=== PATIENT | male | born 1995 | race Caucasian/White ===

== ENCOUNTER 2020-10-05 09:26 | Outpatient (CLI) | payer BC ==
[2020-10-05 11:37] LABS: Hemoglobin 14.8 g/dL (13.5-17.5); Mean Corpuscular HGB CONC 33.5 g/dL (32.0-36.0); Mean Corpuscular Hemoglobin 29.5 pg (27.0-33.0); Mean Corpuscular Volume 88.2 fl (81.2-95.1); Mean Platelet Volume 9.9 fl (7.4-10.4); Platelet Count 210 10x3/uL (150-450); RBC Distribution Width 12.7 % (11.5-14.5); Red Blood Cell (RBC) Count 5.01 10x6/uL (4.32-5.72); White Blood Cell (WBC) Count 9.2 10x3/uL (3.5-10.5)
[2020-10-05 12:02] LABS: Anion Gap 12 mmol/L (10-20); BUN (Urea Nitrogen) 15 mg/dL (8.9-20.6); Calc. Creatinine Clearance 0 mL/min (70-130); Calcium 9.8 mg/dL (7.8-10.44); Carbon Dioxide 28 mmol/L (22-29); Chloride 105 mmol/L (98-107); Glucose 81 mg/dL (70-105); Potassium 3.8 mmol/L (3.5-5.1); Sodium 141 mmol/L (136-145)
== END 2020-10-05 09:27 | disposition home or self-care (01) ==
LOC: LABBT 09:26
PROVIDERS: ATTEND Urology
DX: Z01.812 Encounter for preprocedural laboratory examination (principal); Q54.4 Congenital chordee
CPT/HCPCS: 80048; 85027

== ENCOUNTER 2020-10-09 06:17 | Day surgery (SDC) | payer BC ==
[2020-10-05 12:39] VITALS: BMI 20.9
[2020-10-09] MEDS ORDERED: Bupivacaine 0.25% HCL 30 ML VIAL ONE (06:40)
[2020-10-09] MEDS ORDERED: Fentanyl 100 MCG/2 ML VIAL ONE ×2 (06:54)
[2020-10-09] MEDS ORDERED: Midazolam HCl 2 mg/2 ml Vial ONE (07:09)
[2020-10-09] MEDS ORDERED: Dexamethasone 20 MG/5 ML VIAL ONE (07:28)
[2020-10-09] MEDS ORDERED: PROPOFOL 200 MG/20 ML VIAL ONE (07:28)
[2020-10-09] MEDS ORDERED: Ondansetron PF 4 MG/2 ML Vial ONE (07:28)
[2020-10-09] MEDS ORDERED: Lidocaine 1% PF 5 ML VIAL ONE (07:28)
[2020-10-09] MEDS ORDERED: diphenhydrAMINE 50 MG/ML VIAL ONE (07:28)
[2020-10-09] MEDS ORDERED: Ketorolac Tromethamine 30 MG/ML VIAL ONE (07:28)
[2020-10-09] MEDS ORDERED: Sodium Chloride 0.9% 10 ML ONE (07:54)
[2020-10-09] MEDS ORDERED: Sodium Chloride 0.9% 30 ML ONE ×2 (07:55→08:21)
== END 2020-10-09 10:44 | disposition home or self-care (01) ==
LOC: SDC 06:17
PROVIDERS: ATTEND Urology
PROC: 0VNSXZZ Release Penis, External Approach (ICD-10-PCS; principal; 2020-10-09)
DX: Q54.4 Congenital chordee (principal)
CPT/HCPCS: J0690; J1100; J1200; J1885; J2250; J2405; J2704; J3010; S0020